=== PATIENT | female | born 1970 | race Caucasian/White ===

== ENCOUNTER → 2019-08-19 | Outpatient (CLI) | payer BC ==
--- NOTE | 2019-08-19 15:20 | XR ---
EXAMINATION TYPE: XR abdomen 2V DATE OF EXAM: 08/19/2019 2:30 PM CLINICAL HISTORY: Lower abdominal pain and nausea TECHNIQUE: Upright and supine images of the abdomen were obtained. COMPARISON: None. FINDINGS: Scattered gas is seen in nondilated small bowel loops. Gas and fecal material is seen in no ndilated colon. There is no visceromegaly, pneumoperitoneum, or abnormal calcification appreciated. L iver is enlarged measuring 25 cm in craniocaudal dimension. The lung bases are clear and the osseous structures are intact. IMPRESSION: Nonobstructive bowel gas pattern. Hepatomegaly.
== END | disposition home or self-care (01) ==
LOC: RADXRYALE 14:07
PROVIDERS: ATTEND Physician Assistant Medical
DX: R16.0 Hepatomegaly, not elsewhere classified (principal)
CPT/HCPCS: 74019

== ENCOUNTER → 2019-09-02 | Outpatient (CLI) | payer BC ==
--- NOTE | 2019-09-02 12:36 | US ---
EXAMINATION TYPE: US abdomen complete DATE OF EXAM: 09/02/2019 COMPARISON: NONE CLINICAL HISTORY: R16.0 Hepatomegaly, not elsewhere classified. Hepatomegaly seen on recent x-ray EXAM MEASUREMENTS: Liver Length: 15.4 cm Gallbladder Wall: 0.2 cm CBD: 0.8 cm Spleen: 10.4 cm Right Kidney: 11.2 x 4.2 x 4.2 cm Left Kidney: 11.6 x 4.7 x 3.7 cm Pancreas: visualized portions wnl, limited by overlying midline bowel gas Liver: wnl Gallbladder: wnl Evidence for sonographic Castellano's sign: no CBD: dilated Spleen: wnl Right Kidney: wnl Left Kidney: wnl Upper IVC: wnl Abd Aorta: wnl The liver is homogenous. The intrahepatic portion of the IVC and proximal abdominal aorta are within normal limits. There is no evidence of cholelithiasis. The visualized portions of the pancreas are homogenous. The spleen is unremarkable. Kidneys are symmetric and free of hydronephrosis. No ghulam l lesions are seen. IMPRESSION: 1. Common bile duct dilatation of uncertain etiology. Consider MRCP if felt to be indicated.
== END | disposition home or self-care (01) ==
LOC: RADUSWWP 11:48
PROVIDERS: ATTEND Family Medicine
DX: K83.8 Other specified diseases of biliary tract (principal)
CPT/HCPCS: 76700

== ENCOUNTER → 2019-09-23 | Outpatient (CLI) | payer BC ==
--- NOTE | 2019-09-23 15:21 | MR ---
EXAMINATION TYPE: MR MRCP DATE OF EXAM: 09/23/2019 COMPARISON: None HISTORY: Hepatomegaly Standard multiplanar, multisequence MRI departmental protocol Multiplanar, multisequence images of the upper abdomen were acquired. Reconstructed images through e biliary system performed the technologist. FINDINGS: MRI imaging through the structures including liver spleen pancreas kidneys and adrenal glan ds appear unremarkable. Bowel loops as visualized appear normal. Attention is paid to the biliary system. Fluid signal within the gallbladder is normal. There appears be some prominence of the common bile duct. Extrahepatic biliary ducts appear normal. No filling def ects are evident. No focal stenosis is evident. IMPRESSION: Visualized MRCP appears unremarkable.
== END | disposition home or self-care (01) ==
LOC: RADMRIMAIN 11:09
PROVIDERS: ATTEND Physician Assistant Medical
DX: R16.0 Hepatomegaly, not elsewhere classified (principal); R93.2 Abnormal findings on diagnostic imaging of liver and biliary tract
CPT/HCPCS: 74181

== ENCOUNTER → 2023-09-12 | Outpatient (CLI) | payer BC ==
--- NOTE | 2023-09-14 19:16 | MM ---
Reason for Exam: Screening (asymptomatic). Last mammogram was performed 8 year(s) and 3 month(s) ago. Patient History: Menarche at age 10. Patient has no children. Postmenopausal. Hormonal Contraceptives, starting at age 17 for 24 years. Paternal cousin had breast cancer, age 40. Risk Values: Michelle 5 year model risk: 1.3%. NCI Lifetime model risk: 9.1%. Prior Study Comparison: 02/12/2014 Left Diagnostic Mammogram, [facility]. 06/02/2015 Bilateral Screening Mammogram, [facility]. 06/11/2015 Right Diagnostic Mammogram, [facility]. Tissue Density: There are scattered fibroglandular densities. Findings: Analyzed By CAD. There is no suspicious group of microcalcifications or new suspicious mass in either breast. Overall Assessment: Negative, BI-RAD 1 Management: Screening Mammogram of both breasts in 1 year. . Patient should continue monthly self-breast exams. A clinical breast exam by your physician is recommended on an annual basis. This exam should not preclude additional follow-up of suspicious palpable abnormalities. Note on Michelle scores and lifetime risk: 1. A Michelle score greater than 3% is considered moderate risk. If this is the case, consider specialist referral to assess eligibility for a risk reducing agent. 2. If overall lifetime risk for the development of breast cancer is 20% or higher, the patient may qualify for future screening with alternating mammogram and breast MRI. Electronically signed and approved by: Chanda Craig M.D. Radiologist
== END | disposition home or self-care (01) ==
LOC: RADMAMWWP 13:38
PROVIDERS: ATTEND Family Medicine
DX: Z12.31 Encounter for screening mammogram for malignant neoplasm of breast (principal); Z80.3 Family history of malignant neoplasm of breast; Z78.0 Asymptomatic menopausal state
CPT/HCPCS: 77063; 77067

== ENCOUNTER 2023-10-17 07:05 | Day surgery (SDC) | payer BC ==
[2023-10-16 09:59] VITALS: BMI 29.0
[2023-10-17] MEDS: LACTATED RINGERS 1,000 ML IV SCH (07:21)
[2023-10-17 07:34] LABS: Glucose,Whole Blood 130 mg/dL (70-110)
[2023-10-17 07:48] VITALS: TEMP 97.1
[2023-10-17] MEDS ORDERED: PROPOFOL 10 MG/ML 20 ML VIAL IV ONE (08:07)
--- NOTE | 2023-10-17 08:27 | P.PCN ---
Date of Procedure: 10/17/23 Procedure(s) Performed: BRIEF HISTORY: Patient is a 53-year-old pleasant white female scheduled for an elective colonoscopy as a part of screening for colon cancer. PROCEDURE PERFORMED: Colonoscopy with snare polypectomy. PREOPERATIVE DIAGNOSIS: Screening for colon cancer. IV sedation per Anesthesia. PROCEDURE: After informed consent was obtained, the patient, was brought into the endoscopy unit. IV sedation was administered by Anesthesia under continuous monitoring. Digital rectal examination was normal. Initially the Olympus CF-160 flexible video colonoscope was then inserted in the rectum, gradually advanced into the cecum without any difficulty. Careful examination was performed as the scope was gradually being withdrawn. Ileocecal valve and the appendiceal orifice were visualized and appeared normal. Prep was excellent. Mucosa of the cecum, ascending colon, transverse colon, appeared normal. In the descending colon there was a 6 cm sessile polyp removed by cold snare polypectomy. Rest of the descending colon, sigmoid colon, and rectum appeared normal. Retroflexion was performed in the rectum and no lesions were seen. The patient tolerated the procedure well. IMPRESSION: 6 mm descending colon polyp status post cold snare polypectomy Rest of the colon appeared normal RECOMMENDATIONS: Findings of this examination were discussed with the patient as well as his family. She was advised to follow with the biopsy results. If the biopsy reveals adenoma she can have a repeat colonoscopy in 5 years..
[2023-10-17 09:41] VITALS: BP 131/82; PULSE 63; RESP 16
== END 2023-10-17 09:26 | disposition home or self-care (01) ==
LOC: ORWHC2ENDO 07:05
PROVIDERS: ATTEND Internal Medicine Gastroenterology
DX: Z12.11 Encounter for screening for malignant neoplasm of colon (principal); E07.9 Disorder of thyroid, unspecified; E11.9 Type 2 diabetes mellitus without complications; Z79.84 Long term (current) use of oral hypoglycemic drugs; Z79.890 Hormone replacement therapy
CPT/HCPCS: 88305; 45385; J2704

== ENCOUNTER → 2024-11-28 | Outpatient (CLI) | payer BC ==
--- NOTE | 2024-11-28 10:07 | MM ---
Reason for Exam: Screening (asymptomatic). Last mammogram was performed 1 year(s) and 3 month(s) ago. Patient History: Menarche at age 10. Patient has no children. Postmenopausal. Hormonal Contraceptives, starting at age 17 for 24 years. Paternal cousin had breast cancer, age 40. Risk Values: Michelle 5 year model risk: 1.4%. NCI Lifetime model risk: 8.9%. Prior Study Comparison: 06/02/2015 Bilateral Screening Mammogram, [facility]. 06/11/2015 Right Diagnostic Mammogram, [facility]. 09/12/2023 Bilateral MG 3D screening mammo w/cad, [facility]. Tissue Density: There are scattered areas of fibroglandular density. Findings: Analyzed By CAD. Right breast: There is no suspicious group of microcalcifications or new suspicious mass. Left breast: There is no suspicious group of microcalcifications or new suspicious mass. Overall Assessment: Negative, BI-RAD 1 Management: Screening Mammogram of both breasts in [address] [facility] will attempt to contact patient to return for supplemental views and ultrasound if indicated. Patient should continue monthly self-breast exams. A clinical breast exam by your physician is recommended on an annual basis. This exam should not preclude additional follow-up of suspicious palpable abnormalities. Note on Michelle scores and lifetime risk: 1. A Michelle score greater than 3% is considered moderate risk. If this is the case, consider specialist referral to assess eligibility for a risk reducing agent. 2. If overall lifetime risk for the development of breast cancer is 20% or higher, the patient may qualify for future screening with alternating mammogram and breast MRI. [facility], , 11/28/2024 10:03 AM. Electronically signed and approved by: Gerald Farrell DO
== END | disposition home or self-care (01) ==
LOC: RADMAMWWP 09:13
PROVIDERS: ATTEND Family Medicine
DX: Z12.31 Encounter for screening mammogram for malignant neoplasm of breast (principal); R92.323 Mammographic fibroglandular density, bilateral breasts; Z78.0 Asymptomatic menopausal state; Z80.3 Family history of malignant neoplasm of breast; Z92.0 Personal history of contraception
CPT/HCPCS: 77063; 77067